=== PATIENT | female | born 1950 | race Caucasian/White ===

== ENCOUNTER 2018-04-26 09:03 | Day surgery (SDC) | payer MEDICARE ==
[~2018-04-26 09:03] MED LIST: BIOTIN PO; CALCIUM500 M4 PO; COLON CLEANSE1 CAP PO; CRESTOR10 MG PO; DEXILANT60 MG PO; LEVOTHYROXIN50 MCG PO; VITAMIN B1 PO; VITAMIN B12 PO; VITAMIN B6 PO; VITAMIN C PO; VITAMIN D35000 UNI1 PO
[2018-04-26 11:49] VITALS: BP 100/52
== END 2018-04-26 11:50 | disposition home or self-care (01) ==
LOC: ENDO 09:03 → ORM 16:15 → ENDO 16:15 → ORM 18:00
PROVIDERS: ATTEND Internal Medicine Gastroenterology
PROC: 0DB58ZX Excision of Esophagus, Via Natural or Artificial Opening Endoscopic, Diagnostic (ICD-10-PCS; principal; 2018-04-26)
DX: K22.70 Barrett's esophagus without dysplasia (principal); K21.9 Gastro-esophageal reflux disease without esophagitis; K29.70 Gastritis, unspecified, without bleeding; K44.9 Diaphragmatic hernia without obstruction or gangrene; K31.7 Polyp of stomach and duodenum; K64.4 Residual hemorrhoidal skin tags; K64.8 Other hemorrhoids; Z86.010 Personal history of colon polyps